=== PATIENT | male | born 1980 | race African-American/Black ===

== ENCOUNTER 2018-09-24 10:21 | Emergency (ER) | payer OTHER ==
[2018-09-24 10:38] VITALS: BP 140/74; PULSE 76; TEMP 98.2; BMI 23.7
[2018-09-24] MEDS ORDERED: ALBUTEROL SO4 0.083% IH SOL 2.5 MG/3 ML VIAL.NEB. NEB ONE ×2 (11:01→11:02)
--- NOTE | 2018-09-24 11:07 | PDOC ---
History of Present Illness - General Chief Complaint: Cold Symptoms Stated Complaint: COLD SYMPTOMS Time Seen by Provider: 09/24/18 10:52 History Source: Patient Exam Limitations: No Limitations - History of Present Illness Initial Comments: 09/24/18 11:02 37 yr male with cough sore throat for 2 days no fever no chills. Pt denies vomiting or diarrhea . pt taking dayquil or nyquil at home. non smoker. Past History - Past Medical History Allergies/Adverse Reactions: Allergies Allergy/AdvReac Type Severity Reaction Status Date / Time No Known Allergies Allergy Verified 08/26/14 08:37 Home Medications: Ambulatory Orders No Home Medications 0 dose .ROUTE UTDICT 04/15/14 Cyclobenzaprine HCl [Flexeril] 5 mg PO TID #14 tablet 08/26/14 Benzonatate [Tessalon Pearls -] 100 mg PO TID #21 capsule 09/24/18 COPD: No Thyroid Disease: No - Immunization History Td Vaccination: Yes Immunization Up to Date: Yes - Suicide/Smoking/Psychosocial Hx Smoking Status: No Smoking History: Never smoked Number of Cigarettes Smoked Daily: 0 Hx Alcohol Use: No Drug/Substance Use Hx: No Substance Use Type: None Review of Systems - Review of Systems Able to Perform ROS?: Yes Is the patient limited [place] proficient: No Constitutional: Yes: Malaise HEENTM: Yes: Symptoms Reported, Nose Congestion, Throat Pain Respiratory: Yes: Symptoms reported, Cough *Physical Exam - Vital Signs Last Vital Signs Temp Pulse Resp BP Pulse Ox 98.2 F 76 16 140/74 99 09/24/18 10:35 09/24/18 10:35 09/24/18 10:35 09/24/18 10:35 09/24/18 10:35 - Physical Exam General Appearance: Yes: Nourished, Appropriately Dressed HEENT: positive: EOMI, LORAINE, TMs Normal, Pharyngeal Erythema, Rhinorrhea (clear) . negative: Tonsillar Exudate, Tonsillar Erythema Neck: positive: Supple. negative: Tender Respiratory/Chest: positive: Lungs Clear, Normal Breath Sounds, Decreased Breath Sounds, Other (productive cough white sputum ) Cardiovascular: positive: Regular Rhythm, Regular Rate Gastrointestinal/Abdominal: positive: Normal Bowel Sounds, Soft Moderate Sedation - Procedure Monitoring Vital Signs: Procedure Monitoring Vital Signs Temperature 98.2 F 11/29/18 10:35 Pulse Rate 76 09/24/18 10:35 Respiratory Rate 16 09/24/18 10:35 Blood Pressure 140/74 09/24/18 10:35 O2 Sat by Pulse Oximetry (%) 99 09/24/18 10:35 Medical Decision Making - Medical Decision Making 09/24/18 11:03 cc: cough runny nose, sore throat body aches 2 days taking meds at home. neg nvd neg fever or abd pain. will give albuterol neb x1 dc home viral bronchitis *DC/Admit/Observation/Transfer Diagnosis at time of Disposition: Viral upper respiratory tract infection with cough - Discharge Dispostion Disposition: HOME Condition at time of disposition: Improved - Prescriptions Prescriptions: Benzonatate [Tessalon Pearls -] 100 mg PO TID #21 capsule - Referrals - Patient Instructions Printed Discharge Instructions: DI for Viral Upper Respiratory Infection -- Adult Additional Instructions: drink pleanty of fluids increase vitamin C in your diet oranges, grapefruits, or a supplement over the counter take the tessalon perles as directed for cough tea with honey and lemon gargle with warm salt water 3-4 times a day follow with your doctor in 2-3 days if any worsening symptoms or return to ER if worse - Post Discharge Activity
== END 2018-09-24 11:33 | disposition home or self-care (01) ==
LOC: JERFT 10:21
PROC: 3E0F7GC Introduction of Other Therapeutic Substance into Respiratory Tract, Via Natural or Artificial Opening (ICD-10-PCS; principal; 2018-09-24)
DX: J06.9 Acute upper respiratory infection, unspecified (principal); B97.89 Other viral agents as the cause of diseases classified elsewhere
CPT/HCPCS: 99281-25

== ENCOUNTER 2019-08-18 16:30 | Emergency (ER) | payer OTHER ==
[2019-08-18 16:44] VITALS: BP 145/79; PULSE 85; TEMP 98.6; BMI 24.1
--- NOTE | 2019-08-18 16:48 | PDOC ---
Rapid Medical Evaluation Chief Complaint: Pain Time Seen by Provider: 08/18/19 16:41 Medical Evaluation: Allergies Allergy/AdvReac Type Severity Reaction Status Date / Time No Known Allergies Allergy Verified 08/18/19 16:44 Vital Signs Temp Pulse Resp BP Pulse Ox 98.6 F 85 19 145/79 99 08/18/19 16:42 08/18/19 16:42 08/18/19 16:42 08/18/19 16:42 08/18/19 16:42 08/18/19 16:45 Pt c/o: left thumb pain x 2 days, no injury Pt on brief exam: tenderness and mild edema to base of left 1 st digit, mild increased warmth Pt ordered for:uric acid and finger xray Pt to proceed to the ED Discharge Disposition - Diagnosis Finger pain - Referrals - Patient Instructions - Post Discharge Activity
--- NOTE | 2019-08-18 17:07 | PDOC ---
History of Present Illness - General Chief Complaint: Pain Stated Complaint: L/THUMB/INJURY Time Seen by Provider: 08/18/19 16:41 History Source: Patient Exam Limitations: No Limitations Past History - Past Medical History Allergies/Adverse Reactions: Allergies Allergy/AdvReac Type Severity Reaction Status Date / Time No Known Allergies Allergy Verified 08/18/19 16:44 Home Medications: Ambulatory Orders No Home Medications 0 dose .ROUTE UTDICT 04/15/14 Cyclobenzaprine HCl [Flexeril] 5 mg PO TID #14 tablet 08/26/14 Benzonatate [Tessalon Pearls -] 100 mg PO TID #21 capsule 09/24/18 Ibuprofen [Motrin -] 800 mg PO TID #30 tablet 08/18/19 COPD: No Thyroid Disease: No - Immunization History Td Vaccination: Yes Immunization Up to Date: Yes - Psycho Social/Smoking Cessation Hx Smoking Status: No Smoking History: Never smoked Number of Cigarettes Smoked Daily: 0 Information on smoking cessation initiated: No Hx Alcohol Use: No Drug/Substance Use Hx: No Substance Use Type: None *Physical Exam - Vital Signs Last Vital Signs Temp Pulse Resp BP Pulse Ox 98.6 F 85 19 145/79 99 08/18/19 16:42 08/18/19 16:42 08/18/19 16:42 08/18/19 16:42 08/18/19 16:42 - Physical Exam General Appearance: No: Apparent Distress Extremity: positive: Other (+swelling along L thumb distal phalanx (along palmar aspect) with TTP along L thumb IP joint, no TTP along MCP joint, no erythema, no fluctuance, no induration) Integumentary: negative: Ecchymosis, Bruising Neurologic: positive: Alert, Normal Mood/Affect Medical Decision Making - Medical Decision Making 38 y/o M with no sig pmh presents with L thumb swelling and pain x 4 days. Took Motrin once yesterday. Denies trauma, possibly injury. 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 Denies fever ?Possible gout Plan: Xray 08/18/19 17:06 L thumb xray with ?calcification along L IP joint Will treat as possible gout 08/18/19 17:14 Discharge - Discharge Information Problems reviewed: Yes Clinical Impression/Diagnosis: Gout Qualifiers: Gout site: hand Gout etiology: unspecified cause Chronicity: acute Laterality: left Qualified Code(s): M10.9 - Gout, unspecified Condition: Stable Disposition: HOME - Admission No - Additional Discharge Information Prescriptions: Ibuprofen [Motrin -] 800 mg PO TID #30 tablet Prescription Drug Monitoring Program (I-STOP) results: I-STOP not reviewed - Follow up/Referral - Patient Discharge Instructions Patient Printed Discharge Instructions: DI for Gout Additional Instructions: Thank you for choosing [facility]. It was a pleasure taking care of you. This may possibly be gout Take Motrin 800 mg three times a day for 3-5 days. Take Motrin with food. Follow-up in primary care clinic for further evaluation Return to the Emergency Department if your symptoms worsen or persist, you have fever, redness, weakness or other concerning symptoms. - Post Discharge Activity
[2019-08-18] MEDS ORDERED: IBUPROFEN 400 MG TABLET (FP) PO ONE ×2 (17:12→17:13)
== END 2019-08-18 17:32 | disposition home or self-care (01) ==
LOC: JERFT 16:30
DX: M10.9 Gout, unspecified (principal)
CPT/HCPCS: 73140-TC-LT-FY; 99282-25